=== PATIENT | male | born 1970 | race Two or more races ===

== ENCOUNTER 2024-11-20 12:12 | Emergency (ER) | payer OTHER ==
[~2024-11-20] VITALS: Ht 165.1 cm; Wt 69.4 kg
[2024-11-20] MEDS ORDERED: TADALAFIL2.5 MG PO (13:06)
[2024-11-20] MEDS ORDERED: LEVOXYL75 MCG PO (13:06)
[2024-11-20] MEDS ORDERED: GUAIFENESIN 200 MG/10 ML BLIST.PACK PO ONE ×2 (14:10→14:15)
[2024-11-20 14:21] LABS: HEMATOCRIT 42.9 % (39.0-48.0); HEMOGLOBIN 14.2 g/dL (13-16.00); MEAN CELL VOLUME 82.5 fL (80.0-100.00); MEAN CORPUSCULAR HEMOGLOBIN 27.3 pg (27.00-32.0); MEAN CORPUSCULAR HGB CONC 33.1 g/dl (32.0-36.0); PLATELET COUNT 218 K/uL (150-450); RED CELL DISTRIBUTION WIDTH 15.3 % (11.5-14.5)
== END 2024-11-20 15:39 | disposition home or self-care (01) ==
LOC: ER 12:14
PROVIDERS: General Practice
DX: B34.9 Viral infection, unspecified (principal); E03.9 Hypothyroidism, unspecified; Z20.822 Contact with and (suspected) exposure to COVID-19